=== PATIENT | female | born 1970 | race American Indian/Alaskan Native ===

== ENCOUNTER 2018-10-09 18:53 | Inpatient (IN) | payer BC ==
[2018-10-09] MEDS ORDERED: Naproxen 550 mg Tab PO STA (19:36)
--- NOTE | 2018-10-09 19:39 | ED PDOC ---
Arrival/HPI - General Time Seen by Provider: 10/09/18 19:05 Historian: Patient - History of Present Illness Narrative History of Present Illness (Text): 10/09/18 19:37 48-year-old female reports twisting injury of the R ankle, while walking outside in the snow. This occured prior to arrival. Patient now complains of pain; can bear weight on ankle. Otherwise: (-) knee pain, (-) other injury. Past Medical History - Psychiatric Hx Emotional Abuse: No Hx Physical Abuse: No - Surgical History Other/Comment: VAGINAL CYSTECTOMY IN 2005 - Anesthesia Hx Anesthesia: Yes Hx Anesthesia Reactions: No Hx Malignant Hyperthermia: No - Suicidal Assessment Feels Threatened In Home Enviroment: No Family/Social History Family/Social History: No Known Family HX Smoking Status: Never Smoked Allergies/Home Meds Allergies/Adverse Reactions: Allergies No Known Allergies Allergy (Verified 10/09/18 19:26) Home Medications: Home Meds Medication Instructions Recorded Confirmed No Known Home Med 04/26/16 10/09/18 Review of Systems - Review of Systems Constitutional: absent: Fatigue, Fevers Musculoskeletal: Arthralgias, Joint Swelling. absent: Back Pain, Neck Pain Skin: absent: Rash, Pruritis, Skin Lesions Physical Exam - Physical Exam Narrative Physical Exam (Text): 10/09/18 19:38 GENERAL APPEARANCE: Patient is awake, alert, oriented x 3, in mild painful distress. SKIN: Warm, dry; (-) cyanosis. LOWER EXTREMITY: Ankle: (+) swelling, tenderness of the medial aspect of the ankle; (+) swelling and tenderness of the lateral ankle; (+) limited range of motion secondary to pain. Achilles tendon intact and nontender. Knee and foot: (-) injury. CARDIOVASCULAR: (+) distal pulse. NEUROLOGIC: (+) distal sensation. Medical Decision Making ED Course and Treatment: 10/09/18 19:38 Plan : - XR R ankle [place] [facility] [place]R right ankle: +displaced distal tibia and fibula fracture, +mild displacement of the mortis, no dislocation, as read by PA XR results d/w the patient. Advised that she will likely need surgery and admission to the hospital. Patient made aware that I will contact her pmd and ortho for disposition. Case d/w Dr. White, she request to consult Dr. Rosales. Case d/w Dr. Rosales, states that the patient will need to be admitted for likely OR in the AM. Dr. White called back, plan for inpatient admission with OR in the AM was discussed with her. Bridge orders placed. Orthoglass short leg splint applied by PA. Neurovascular intact post splint application. On re-evaluation, patient is resting in bed comfortably in no acute distress. She agrees with plan for admission. Labs, EKG, CXR ordered. EKG: NSR at 90 bpm, (-) acute ST changes, as read by PA. CXR : NAD, as read by JOSÉ Labs reviewed and wnl. - PA / EXTRUSION TECHNICIAN / Resident Statement MD/DO has reviewed & agrees with the documentation as recorded. Disposition/Present on Arrival - Present on Arrival Any Indicators Present on Arrival: No History of DVT/PE: No History of Uncontrolled Diabetes: No Urinary Catheter: No History of Decub. Ulcer: No - Disposition Have Diagnosis and Disposition been Completed?: Yes Diagnosis: Closed fracture of distal end of right fibula and tibia Disposition: HOSPITALIZED Disposition Time: 21:00 Patient Plan: Admission Patient Problems: Current Active Problems Problem Status Onset Closed fracture of distal end of right fibula and tibia Acute Condition: STABLE
[2018-10-09] MEDS ORDERED: Sodium Chloride 0.9% 1,000 ML IV STA (21:05)
[2018-10-09 21:47] LABS: URINE BILIRUBIN NEGATIVE (NEGATIVE); URINE BLOOD NEGATIVE (NEGATIVE); URINE GLUCOSE (UA) NEGATIVE (NEGATIVE); URINE LEUKOCYTE ESTERASE NEGATIVE Leu/uL (NEGATIVE); URINE PROTEIN NEGATIVE mg/dL (<30 mg/dL); URINE UROBILINOGEN 0.2 E.U./dL (<1 E.U./dL)
[2018-10-09 21:48] LABS: BASO # 0.02 K/mm3 (0.0-2.0); BASO % 0.2 % (0.0-3.0); GRAN # 8.4 (1.4-6.5); GRAN % 77.7 % (50.0-68.0); HEMOGLOBIN 12.1 g/dL (12.0-16.0); LYMPH # 1.8 (1.2-3.4); LYMPH % 16.5 % (22.0-35.0); MEAN CELL VOLUME 89.5 fl (80.0-105.0); MEAN CORPUSCULAR HEMOGLOBIN 28.9 pg (25.0-35.0); MEAN CORPUSCULAR HGB CONC 32.4 g/dl (31.0-37.0); MONO # 0.6 (0.1-0.6); MONO % 5.6 % (1.0-6.0); RBC 4.18 10^6/uL (3.5-6.1); RED CELL DISTRIBUTION WIDTH 14.7 % (11.5-14.5); WHITE BLOOD COUNT 10.8 10^3/uL (4.5-11.0)
[2018-10-09 21:52] LABS: URINE COLOR YELLOW (YELLOW)
[2018-10-09 21:53] LABS: ALT/SGPT 14 U/L (7-56); AST/SGOT 20 U/L (14-36); BLOOD UREA NITROGEN 12 mg/dL (7-21); CALCIUM 9.3 mg/dL (8.4-10.5); GFR NON-AFRICAN AMERICAN > 60; URINE APPEARANCE SL CLOUDY (CLEAR)
[2018-10-09 22:01] LABS: INR 0.99; PARTIAL THROMBOPLASTIN TIME 31.1 Seconds (25.1-36.5); PROTHROMBIN TIME 11.3 SECONDS (9.4-12.5)
[2018-10-09 22:39] LABS: URINE RBC 0 - 2 /hpf (0-2); URINE WBC 0 - 2 /hpf (0-6)
[2018-10-09 22:40] LABS: URINE AMORPHOUS SEDIMENT FEW; URINE BACTERIA MOD (NEG)
[2018-10-09] MEDS ORDERED: Morphine 2 mg/ml ISec IVP PRN (23:38)
[2018-10-10 00:15] VITALS: BMI 29.9
[2018-10-10] MEDS ORDERED: Pneumococcal 23-Valent Vaccine IM ONE (00:15)
[2018-10-10] MEDS ORDERED: Influenza Vaccine 60 mcg/0.5 mL SYR (4YR UP) IM ONE (00:15)
--- NOTE | 2018-10-10 09:14 | RAD ---
Date of service: 10/09/2018 PROCEDURE: Right Ankle Radiographs. HISTORY: pain COMPARISON: None available. FINDINGS: BONES: There is bimalleolar fracture. There is a displaced obliquely oriented fracture through the distal fibula. There is a transverse fracture of the medial malleolus. JOINTS: Normal. No osteoarthritis. Ankle mortise maintained. Talar dome intact SOFT TISSUES: Normal. OTHER FINDINGS: None. IMPRESSION: There is bimalleolar fracture. There is a displaced obliquely oriented fracture through the distal fibula. There is a transverse fracture of the medial malleolus.
--- NOTE | 2018-10-10 09:19 | RAD ---
Date of service: 10/09/2018 HISTORY: for possible OR COMPARISON: No prior. FINDINGS: LUNGS: No active pulmonary disease. PLEURA: No significant pleural effusion identified, no pneumothorax apparent. CARDIOVASCULAR: No aortic atherosclerotic calcification present. Normal cardiac size. No pulmonary vascular congestion. OSSEOUS STRUCTURES: No significant abnormalities. VISUALIZED UPPER ABDOMEN: Normal. OTHER FINDINGS: None. IMPRESSION: No active disease.
--- NOTE | 2018-10-10 10:45 | CON ---
ORTHOPEDIC REPORT DATE: 10/10/2018 LOCATION: Room 369, bed 1. HISTORY OF PRESENT ILLNESS: A 48-year-old female. She slipped, fell and twisted her right ankle last night on 10/09/2018. She heard bones break and was out of place and she had the courage to straighten out her displaced ankle fracture and she was able to make it up to stairs with three flights and then transported to the hospital last night. An x-ray showed she has a bimalleolar fracture of her right ankle closed with a short oblique fracture of fibula and a fracture of the medial malleolus at the level of the plafond, which will require a formal ORIF of the lateral malleolus and the medial malleolus; hopefully, we can do it today which is 10/10/2018 before it swells too much; otherwise, we will have to wait. So, I will try to put on a surgical schedule today. She has good neurovascular status, no open wounds. She is in a splint, so we will take her to surgery today to correct everything if the swelling is down, we can order in a lateral fibular plate and 2 screws in the medial malleolus. She was told of risks and benefits and elected to undergo surgical procedure so she can go back to work in approximately 2 months. FINAL DIAGNOSIS: Displaced right ankle fracture, right malleolar. PLAN: To do ORIF of the right ankle today which is 10/10/2018. Akshat Rosales DO
[2018-10-10] MEDS ORDERED: Propofol 10 mg/ml Inj (20 ML) ONE (11:12)
[2018-10-10] MEDS ORDERED: Bupivacaine 0.5% 50 ML IJ ONE (11:19)
[2018-10-10] MEDS ORDERED: CeFAZolin 1 gm in NS 100ml IVPB ONE (11:20)
[2018-10-10] MEDS ORDERED: Bupivacaine 0.5% Inj(30mL) IJ ONE (13:02)
[2018-10-10] MEDS ORDERED: Vancomycin 1 g Inj ONE (13:16)
[2018-10-10] MEDS: HYDROmorphone 0.5 mg/0.5 ml ISec IVP PRN ×2 (14:10→14:32)
[2018-10-10] MEDS ORDERED: HYDROmorphone 1 mg/ml ISec SC PRN (14:13)
[2018-10-10] MEDS ORDERED: HYDROmorphone 0.5 mg/0.5 ml ISec ONE ×2 (14:13→14:34)
[2018-10-10] MEDS ORDERED: Lactated Ringer's 1,000 ML IV SCH (14:15)
--- NOTE | 2018-10-10 14:18 | RAD ---
Date of service: 10/10/2018 PROCEDURE: Fluoroscopy up to 1 hr HISTORY: O.R.I.F. RT. ANKLE FX. COMPARISON: TECHNIQUE: 14.1 sec of fluoro time. Cumulative dose 0.51 mGy. Two images were submitted FINDINGS: There has been internal fixation of a bimalleolar fracture IMPRESSION: As above
[2018-10-10] MEDS: Oxycodone/Acetaminophen 5/325 mg Tab PO PRN (17:11)
--- NOTE | 2018-10-10 18:57 | CARD ---
APPROVED REPORT Date of service: 10/09/2018 EKG Measurement Heart [id number] <Conclusion> Normal sinus rhythm Possible Left atrial enlargement Borderline ECG
--- NOTE | 2018-10-10 21:33 | HP ---
DATE OF EXAM: 10/10/2018 HISTORY OF PRESENT ILLNESS: The patient is 48 years old states she was working in the snow, lost her balance and she fell and twisted her right ankle. The patient has no significant past medical history. ALLERGIES: SHE IS ALLERGIC TO ALMONDS. MEDICATIONS AT HOME: She only take multivitamin at home. PAST MEDICAL HISTORY: Also significant for chronic anemia. SOCIAL HISTORY: She is single. She has no children. 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 PHYSICAL EXAMINATION: GENERAL: Awake, alert, oriented, sleepy, but arousable. VITAL SIGNS: The patient is afebrile, pulse 95, respirations 18, and blood pressure 126/73. LUNGS: Bilateral fair air flow. No rhonchi or crackle. HEART: S1 and S2 audible. ABDOMEN: Soft and nontender. No rebound. No guarding. NEUROLOGIC: The patient is awake, alert, oriented, communicative, unable to move right leg because of ankle pain. LABORATORY DATA: WBC 10.8, hemoglobin 12.1, hematocrit 37.4, and platelets 404,000. PT 11.3 and INR 0.99. Chemistry; sodium 138, potassium 3.9, chloride 106, CO2 of 25, BUN 12, creatinine 0.7, and blood sugar 107. LFTs are within normal limits. Urinalysis unremarkable. Urine test is negative. She had x-ray of the ankle shows bimalleolar fracture, there is a displaced obliquely fracture through the distal fibula and there is transverse fracture of the medial malleolus. ASSESSMENT: 1. Status post fall. 2. Right bimalleolar fracture. 3. History of anemia. PLAN: The patient is seen by Dr. Rosales and she is going to have open reduction and internal fixation. We will continue pain management, monitor H and H in a.m. Leslie White MD
--- NOTE | 2018-10-11 00:57 | OP ---
PROCEDURE DATE: 10/10/2018 PREOPERATIVE DIAGNOSIS: A 48-year-old female with a displaced bimalleolar fracture of right ankle with comminution medially of the medial malleolus and lateral malleolus. POSTOPERATIVE DIAGNOSIS: A 48-year-old female with a displaced bimalleolar fracture of right ankle with comminution medially of the medial malleolus and lateral malleolus. ANESTHESIA: General endotracheal tube. PROCEDURE: Open reduction and internal fixation with a bilateral malleolar fixation using 8-hole plate on the lateral side, and medially she had two cannulated screws, both for open reduction and internal fixation. DESCRIPTION OF PROCEDURE: Summary as follows. The patient was taken to the OR. Right ankle was prepped and draped in the sterile fashion on the fracture table with Trendelenburg position. No tourniquet was utilized. We first did the lateral malleolus by making a lateral fibular incision just leave 6 inches going above the fracture for 4 inches and below the fracture with 2 inches. Deep knife was used to go through the fascia and subcutaneous tissues. We reduced the fracture with comminuted posteriorly, and we held it reduced as we cleaned it off the periosteum into position of the tissue. We held it reduced with bone clip and put a lag screw from the anterior-superior to posterior-inferior. This held the fracture reduced for us to put the 8-hole one third tibial plate on with three screws above and three screws below, and we stabilized the lateral malleolus. Then, we did a medial malleolar incision with a semi-circular incision anteriorly opening up the fracture to rotate and displace and clean out the joint. However, she had some scarring of the talus with chondral irritation from the previous dislocation that she self-reduced. Once we cleaned it all out irrigation with normal saline, we held the fracture reduced with two K-wires and put a 38 mm long screw anteriorly and a 48 mm long screw posteriorly. This was seen on x-ray to be in good position. The medial and lateral malleolus and hardware were in good position. The wounds were closed after thorough irrigation with 0 Vicryl fascial layers, interrupted 2-0 Vicryl subcutaneous tissue, skin with stainless steel kapil. The patient was placed in AO splint with plaster of juventino with posterior splint and gutters splint laterally and medially held in dorsiflexion, sent to the recovery room in good condition. Akshat Rosales DO
[2018-10-11] MEDS: Oxycodone/Acetaminophen 5/325 mg Tab PO PRN ×3 (03:39→13:49)
[2018-10-11 06:46] LABS: BASO # 0.02 K/mm3 (0.0-2.0); BASO % 0.3 % (0.0-3.0); EOS % 0.3 % (1.5-5.0); GRAN # 4.46 (1.4-6.5); GRAN % 57.3 % (50.0-68.0); HEMOGLOBIN 10.8 g/dL (12.0-16.0); LYMPH # 2.4 (1.2-3.4); LYMPH % 30.7 % (22.0-35.0); MEAN CORPUSCULAR HEMOGLOBIN 28.3 pg (25.0-35.0); MEAN CORPUSCULAR HGB CONC 31.5 g/dl (31.0-37.0); MEAN PLATELET VOLUME 9.4 fl (7.0-11.0); MONO # 0.9 (0.1-0.6); MONO % 11.4 % (1.0-6.0); RBC 3.81 10^6/uL (3.5-6.1); RED CELL DISTRIBUTION WIDTH 14.7 % (11.5-14.5); WHITE BLOOD COUNT 7.8 10^3/uL (4.5-11.0)
[2018-10-11 07:45] LABS: ALBUMIN 3.4 g/dL (3.0-4.8); ALT/SGPT 20 U/L (7-56); AST/SGOT 19 U/L (14-36); BLOOD UREA NITROGEN 12 mg/dL (7-21); CALCIUM 8.7 mg/dL (8.4-10.5); GFR NON-AFRICAN AMERICAN > 60
[2018-10-11 14:34] VITALS: BP 135/87; PULSE 109; RESP 20; TEMP 98.7; O2SAT 100
--- NOTE | 2018-10-11 15:12 | PN ---
DATE: 10/11/2018 SUBJECTIVE: The patient suffered displaced bimalleolar fracture on 10/09/2018, had ORIF on 10/10/2018. She is going to be discharged on 10/11/2018. She is non-weightbearing. She has a well padded splint on her right lower extremity with a fracture was bimalleolar type on the right ankle. Strict instructions were no weightbearing, elevation at home and I will see her in the office in two weeks and I gave her prescription for Tylenol and codeine. If she has any trouble getting it wet or too much pain, she is to call me at [phone] and I will see her in the office in two weeks to look at the wound and the sutures of the wound. Akshat Rosales DO [email or web address]
--- NOTE | 2018-10-12 01:55 | DS ---
HISTORY OF PRESENT ILLNESS: The patient is 48 years old, states after snowstorm, she was very carefully walking towards home, she was just three doors away and she fell and twisted her ankle, underwent open reduction and internal fixation, seen by Dr. Rosales and being discharged home today. PHYSICAL EXAMINATION: GENERAL: She is awake, alert, oriented, communicative. VITAL SIGNS: She is afebrile, pulse 109, respirations 20, blood pressure 135/87. LUNGS: Bilateral fair airflow. No rhonchi or crackles. HEART: S1 and S2 audible. ABDOMEN: Soft, obese, nontender. No rebound. No guarding. NEUROLOGIC: She is awake, alert, and oriented, able to communicate. LABORATORY EXAM: WBC 7.8, hemoglobin 10.8, hematocrit 34.3, and platelets 326,000. Chemistry; sodium 140, potassium 4.2, chloride 107, CO2 of 24, BUN 12, creatinine 0.7. Blood sugar of 100. ASSESSMENT: 1. Status post fall. 2. Status post right bimalleolar fracture status post open reduction and internal fixation. 3. Chronic anemia. PLAN: The patient is being discharged home today. She will be given Percocet, and I discussed with Dr. Rosales if she should be given Eliquis, but he thinks that the patient will be starting non-weight bearing immediately and should be enough. DVT prophylaxis. Leslie White MD
== END 2018-10-11 18:06 | disposition home or self-care (01) | DRG 494 ==
LOC: ED 18:53 → ERH 21:03 → 3RNO 22:50 → 5RNO 10-10 21:25
PROVIDERS: ADMIT Internal Medicine; ATTEND Internal Medicine
PROC: 0QSG04Z Reposition Right Tibia with Internal Fixation Device, Open Approach (ICD-10-PCS; 2018-10-10)
PROC: 0QSJ04Z Reposition Right Fibula with Internal Fixation Device, Open Approach (ICD-10-PCS; principal; 2018-10-10 11:00)
DX: S82.841A Displaced bimalleolar fracture of right lower leg, initial encounter for closed fracture (principal); S82.431A Displaced oblique fracture of shaft of right fibula, initial encounter for closed fracture; D64.9 Anemia, unspecified; W01.0XXA Fall on same level from slipping, tripping and stumbling without subsequent striking against object, initial encounter; W00.0XXA Fall on same level due to ice and snow, initial encounter; Y93.01 Activity, walking, marching and hiking; Y92.480 Sidewalk as the place of occurrence of the external cause; Z91.018 Allergy to other foods